=== PATIENT | male | born 1955 | race Caucasian/White ===

== ENCOUNTER → 2020-04-23 | Outpatient (REF) | payer MEDICARE ==
[~2020-04-23] MED LIST: ECHI80CA PO; GLUC1CAP9 PO; OMEGCAP9 PO; [UNRECOGNIZED DRUG - OTHER] PO
== END ==
LOC: M SFHCPLAZ 15:11
PROVIDERS: ATTEND Physician Assistant
DX: L30.8 Other specified dermatitis (principal); R21 Rash and other nonspecific skin eruption
CPT/HCPCS: 11104; 11105; 87252; 88300; G0463

== ENCOUNTER → 2020-11-24 | Outpatient (CLI) | payer MEDICARE ==
[~2020-11-24] MED LIST changes: +ASCO1TAB3 PO; +CIDA500T2 PO; +CVS1CAP2 PO; +D31000TA2 PO; +PURE500C5 PO; +VITMTA PO; +ZINC1TAB2 PO; +[UNRECOGNIZED DRUG - OTHER] PO
== END ==
LOC: M LABSMTC 09:26
PROVIDERS: ATTEND Anesthesiology
DX: Z01.812 Encounter for preprocedural laboratory examination (principal); Z20.822 Contact with and (suspected) exposure to COVID-19

== ENCOUNTER 2020-11-29 09:18 | Day surgery (SDC) | payer MEDICARE ==
[~2020-11-29] VITALS: Ht 162.6 cm; Wt 75.5 kg
[~2020-11-29 09:18] MED LIST changes: +LIDOCAINE 2% 100MG/5ML SDV (FOR ANES.) As Ordered ONE; +NS 1,000 ML IV ONE; +propofoL 200 MG/20 ML VIAL As Ordered ONE
--- NOTE | 2020-11-29 10:39 | ROOR ---
Patient Name: Chantale Huynh Procedure Date: 11/29/2020 10:17 AM Date of : 1955 Age: 65 Room: [facility] Gender: Male Note Status: Finalized Procedure: Colonoscopy Indications: High risk colon cancer surveillance: Personal history of colonic polyps, Last colonoscopy: August 2015 Providers: Bo Frost MD Referring MD: NICOLLE HUYNH MD Requesting Provider: Medicines: Monitored Anesthesia Care Complications: No immediate complications. Procedure: Pre-Anesthesia Assessment: - The heart rate, respiratory rate, oxygen saturations, blood pressure, adequacy of pulmonary ventilation, and response to care were monitored throughout the procedure. The Colonoscope was introduced through the anus and advanced to the terminal ileum, with identification of the appendiceal orifice and IC valve. The colonoscopy was performed without difficulty. The patient tolerated the procedure well. The quality of the bowel preparation was good. Findings: The perianal and digital rectal examinations were normal. Three sessile polyps were found in the sigmoid colon and cecum. The polyps were diminutive in size. These polyps were removed with a cold snare. Resection and retrieval were complete. A diffuse area of mild melanosis was found in the entire colon. The exam was otherwise without abnormality on direct and retroflexion views. Impression: - Three diminutive polyps in the sigmoid colon and in the cecum, removed with a cold snare. Resected and retrieved. - Melanosis in the colon. - The examination was otherwise normal on direct and retroflexion views. Recommendation: - Repeat colonoscopy in 5 years for surveillance. Procedure Code(s): --- Professional --- 34333, Colonoscopy, flexible; with removal of tumor(s), polyp(s), or other lesion(s) by snare technique Diagnosis Code(s): --- Professional --- K63.5, Polyp of colon Z86.010, Personal history of colonic polyps K63.89, Other specified diseases of intestine CPT copyright 2019 [employer]. All rights reserved. The codes documented in this report are preliminary and upon director of manufacturing operations review may be revised to meet current compliance requirements. Bo Frost MD Bo Frost MD 11/29/2020 10:39:12 AM Electronically signed by Bo Frost MD Number of Addenda: 0 Note Initiated On: 11/29/2020 10:17 AM Estimated Blood Loss: Estimated blood loss: none.
[2020-11-29 10:57] VITALS: BP 102/61
== END 2020-11-29 11:00 | disposition home or self-care (01) ==
LOC: M OPP 09:18
PROVIDERS: ATTEND Internal Medicine Gastroenterology
DX: Z12.11 Encounter for screening for malignant neoplasm of colon (principal); Z86.010 Personal history of colon polyps; Z80.0 Family history of malignant neoplasm of digestive organs; D12.0 Benign neoplasm of cecum; D12.5 Benign neoplasm of sigmoid colon; K63.89 Other specified diseases of intestine

== ENCOUNTER 2023-06-09 12:06 | Day surgery (SDC) | payer MEDICARE ==
[~2023-06-09] VITALS: Ht 165.1 cm; Wt 68.2 kg
[~2023-06-09 12:06] MED LIST changes: +ASCO500C3 PO; -D31000TA2 PO; -LIDOCAINE 2% 100MG/5ML SDV (FOR ANES.) As Ordered ONE; -NS 1,000 ML IV ONE; -PURE500C5 PO; +THERTAB52 PO; +VITA100093 PO; +[UNRECOGNIZED DRUG - OTHER] PO; -propofoL 200 MG/20 ML VIAL As Ordered ONE
[2023-06-09] MEDS: LR 1,000 ML IV SCH (13:30)
[2023-06-09] MEDS: CelecoXIB 400 MG CAP PO ONE (13:30)
[2023-06-09] MEDS: ceFAZolin SOD 2 GM in IV 1 EA IV ONE (16:24)
[2023-06-09] MEDS ORDERED: KETOROLAC 60MG 2ML VIAL As Ordered ONE (16:34)
[2023-06-09] MEDS ORDERED: propofoL 200 MG/20 ML VIAL As Ordered ONE (16:34)
[2023-06-09] MEDS ORDERED: ONDANSETRON 4MG 2ML VIAL As Ordered ONE (16:34)
[2023-06-09] MEDS ORDERED: LIDOCAINE 2% 100MG/5ML SDV (FOR ANES.) As Ordered ONE (16:34)
[2023-06-09] MEDS ORDERED: MIDAZOLAM INJ 2MG/2ML VIAL As Ordered ONE (16:34)
[2023-06-09] MEDS ORDERED: ACETAMINOPHEN 1000MG 100ML IV BAG As Ordered ONE (16:34)
[2023-06-09] MEDS ORDERED: ROCURONIUM BROMIDE 50MG/5ML VIAL As Ordered ONE (16:34)
[2023-06-09] MEDS ORDERED: SUGAMMADEX SODIUM 500 MG/5 ML VIAL (BRIDION) As Ordered ONE (16:34)
[2023-06-09] MEDS ORDERED: fentaNYL 250 MCG/5 ML INJECTION As Ordered ONE (16:34)
[2023-06-09] MEDS ORDERED: ePHEDrine SULFATE 25 MG/5 ML(5MG/ML) SYRINGE As Ordered ONE (16:41)
[2023-06-09] MEDS: LIDOCAINE 1% SDV 30ML VIAL As Ordered ONE (18:15)
[2023-06-09] MEDS ORDERED: MORPHINE 2 MG/ML 1ML VIAL IV PRN (18:20)
[2023-06-09] MEDS: ONDANSETRON 4MG 2ML VIAL IV PRN (19:03)
[2023-06-09] MEDS: fentaNYL 100 MCG/2 ML INJECTION IV PRN (19:04)
[2023-06-09] MEDS: oxyCODONE 5MG TAB PO PRN (19:05)
[2023-06-09] MEDS ORDERED: NORCO, ANEXSIA 5/325MG TABLET (HYDROcodone/ACETAMINOPHEN) PO PRN ×2 (19:55→20:00)
[2023-06-09 20:26] VITALS: BP 139/67; TEMP 98.3; O2SAT 95
[2023-06-10] MEDS ORDERED: KETOROLAC 30 MG/ML 1ML VIAL IV SCH
== END 2023-06-09 20:38 | disposition home or self-care (01) ==
LOC: M SDC 12:06
PROVIDERS: ATTEND Surgery
DX: K40.20 Bilateral inguinal hernia, without obstruction or gangrene, not specified as recurrent (principal)
CPT/HCPCS: 49650; 93005; C1781; J0131; J0665; J0690; J1100; J1885; J2250; J2405; J3010; S2900